=== PATIENT | female | born 1975 | race Caucasian/White ===

== ENCOUNTER → 2016-11-23 | Outpatient (CLI) | payer OTHER ==
[~2016-11-23] MED LIST: GABA-113 PO; METH10TA6 PO; MULT-506 PO
[2016-11-26 01:54] LABS: CHLAMYDIA TRACH RNA*** NOT DETECTED (NOT DETECTED); GC (NEIS GONORRHOEAE)RNA** NOT DETECTED (NOT DETECTED)
== END | disposition home or self-care (01) ==
LOC: C.LABPVFM 14:53
PROVIDERS: ATTEND Nurse Practitioner Family
DX: L29.8 Other pruritus (principal); R30.0 Dysuria

== ENCOUNTER → 2017-01-28 | Outpatient (CLI) | payer OTHER ==
--- NOTE | 2017-01-28 16:52 | MAMMOGRAPHY REPORT ---
BILATERAL DIGITAL SCREENING MAMMOGRAM TOMOSYNTHESIS WITH CAD: 01/28/2017 CLINICAL HISTORY: Routine screening. Patient has no complaints. TECHNIQUE: Breast tomosynthesis in addition to standard 2D mammography was performed. Current study was also evaluated with a Computer Aided Detection (CAD) system. COMPARISON: Comparison is made to exam dated: 12/18/2008. BREAST COMPOSITION: The tissue of both breasts is heterogeneously dense, which may obscure small ma sses. FINDINGS: There is an obscured mass versus 2 adjacent masses seen within the left upper inner quadr ant, for which spot compression tomosynthesis views and possible breast ultrasound are recommended f or further evaluation. The remainder of both breasts are stable compared to prior exams, without suspicious masses, calcifi cations, or areas of architectural distortion noted. An oval benign-appearing 15 mm mass seen withi n the left anterior breast at approximately 9:00 is stable. IMPRESSION: ACR BI-RADS CATEGORY 0: INCOMPLETE EVALUATION: NEED ADDITIONAL IMAGING EVALUATION Left medial breast mass, for which additional imaging evaluation is recommended. The patient will b e called to schedule an appointment. Approximately 10% of breast cancers are not detected with mammography. A negative mammographic repor t should not delay biopsy if a clinically suggestive mass is present. Elsa Doyle M.D. /:01/28/2017 16:09:47 Rubber Trimmer: Amy JACKSON)(M), [facility] letter sent: Addl Imaging 0 BI-RADS Code: ACR BI-RADS Category 0: Incomplete Evaluation: Need Additional Imaging Evaluation
== END | disposition home or self-care (01) ==
LOC: C.MAMM 13:40
PROVIDERS: ATTEND Obstetrics & Gynecology
DX: Z12.31 Encounter for screening mammogram for malignant neoplasm of breast (principal); N63 Unspecified lump in breast

== ENCOUNTER → 2017-02-01 | Outpatient (CLI) | payer OTHER ==
--- NOTE | 2017-02-01 15:57 | MAMMOGRAPHY REPORT ---
UNILATERAL LEFT DIGITAL DIAGNOSTIC MAMMOGRAM TOMOSYNTHESIS AND TARGETED LEFT ULTRASOUND: 02/01/2017 CLINICAL HISTORY: 42-year-old woman called back from screening mammography for a possible obscured m ass versus 2 adjacent masses in the medial left breast. A 15 mm mass in the medial anterior left br east was felt to be stable to decreased in size dating back to 12/18/2008 mammogram, therefore consi dered benign. TECHNIQUE: Spot compression left CC and MLO tomosynthesis images were obtained. COMPARISON: Comparison is made to exams dated: 01/28/2017 mammogram - [facility] a nd 12/18/2008. BREAST COMPOSITION: The tissue of the left breast is heterogeneously dense, which may obscure small masses. FINDINGS: The spot compression tomosynthesis CC views demonstrate a lobulated, 11 x 11 mm mass in th e medial, middle one third of the breast. There is an elliptical 19 x 10 mm mass more medial and an terior within the left breast. No definite focal area of architectural distortion or other obvious mass. Further evaluation with ultrasound was performed. Targeted ultrasound was performed in the medial left breast. In the 7:00 periareolar left breast, t here is a hypoechoic solid circumscribed mass measuring 9.0 x 10.3 x 13.4 mm. This likely correlate s with the stable mammographic mass and most likely represents a fibroadenoma. Another hypoechoic m ultilobulated solid appearing mass is identified in the 9:00 left breast, 1 cm from the nipple. Acc urate measurements are difficult to obtain given the multiple lobulations, but this measures approxi mately 8.0 x 10.2 mm in maximum dimension. In the 10:00 left breast, 5 cm from the nipple, there ar e clumped nodular hypoechoic areas measuring approximately 7.5 x 3.4 x 9.0 mm, which appears somewha t similar to the other grouped hypoechoic masses in the 9:00 breast. These findings could all repre sent fibrocystic or fibroadenomatoid change. However, a short interval follow-up diagnostic left ma mmogram and repeat targeted ultrasound in the 9:00 and 10:00 axes is recommended to ensure stability in 6 months. IMPRESSION: ACR-BI-RADS CATEGORY 3: PROBABLY BENIGN, TARGETED ULTRASOUND ACR-BI-RADS CATEGORY 3: RI OBABLY BENIGN There are benign appearing lobulated hypoechoic masses in the 9:00 left breast and also likely in th e 10:00 left breast that could represent fibrocystic or fibroadenomatoid change. A dominant solid m ass in the 7:00 left breast is stable mammographically dating back to at least 2008, therefore likel y benign. However, a short interval follow-up diagnostic left mammogram including tomosynthesis marco antonio ges and repeat targeted ultrasound in the 9:00 and 10:00 axes is recommended to ensure stability in 6 months. These results and recommendations were discussed with the patient at the time of the exam. She tent atively scheduled a follow-up appointment prior to leaving our department. Approximately 10% of breast cancers are not detected with mammography. A negative mammographic repor t should not delay biopsy if a clinically suggestive mass is present. Yandy Crystal M.D. ay/:02/01/2017 15:37:58 Communications Department Chairperson: Emma JACKSON)(Sandeep), [facility] letter sent: Follow Up Recommended 3 BI-RADS Code: ACR-BI-RADS Category 3: Probably Benign Ultrasound BI-RADS: ACR-BI-RADS Category 3: P robably Benign
== END | disposition home or self-care (01) ==
LOC: C.MAMM 09:39
PROVIDERS: ATTEND Obstetrics & Gynecology
DX: N63 Unspecified lump in breast (principal)

== ENCOUNTER → 2017-02-26 | Outpatient (CLI) | payer OTHER | END | disposition home or self-care (01) | LOC: C.LABSPEC 13:24 | PROVIDERS: ATTEND Family Medicine | DX: N39.0 Urinary tract infection, site not specified (principal) ==

== ENCOUNTER → 2018-02-02 | Outpatient (CLI) | payer OTHER | END | disposition home or self-care (01) | LOC: C.LABPVFM 17:15 | PROVIDERS: ATTEND Family Medicine | DX: Z00.00 Encounter for general adult medical examination without abnormal findings (principal); N39.0 Urinary tract infection, site not specified; R39.9 Unspecified symptoms and signs involving the genitourinary system ==

== ENCOUNTER → 2018-02-02 | Outpatient (CLI) | payer OTHER ==
--- NOTE | 2018-02-02 15:47 | MAMMOGRAPHY REPORT ---
BILATERAL DIGITAL DIAGNOSTIC MAMMOGRAM TOMOSYNTHESIS WITH CAD AND TARGETED LEFT ULTRASOUND: 02/02/2018 CLINICAL HISTORY: Short interval follow-up of left breast masses. Due for routine mammography of the right breast. The patient reports no new lumps or other complaints. TECHNIQUE: Breast tomosynthesis in addition to standard 2D mammography was performed. Current study was also evaluated with a Computer Aided Detection (CAD) system. Bilateral CC and MLO 2D and tomosyn thesis images were obtained. COMPARISON: Comparison is made to exams dated: 08/05/2017 ultrasound, 08/05/2017 mammogram, 02/01/2017 m ammogram, 02/01/2017 ultrasound, 01/28/2017 mammogram - [facility], and 12/18/2008. BREAST COMPOSITION: The tissue of both breasts is heterogeneously dense, which may obscure small mas ses. FINDINGS: There has been no significant interval change mammographically compared to prior exams. Lo bulated partially circumscribed and partially obscured 13 mm mass within the left medial breast at ap proximately 9 to 10:00 is stable mammographically dating back to the January 2017 exam. Circumscribed 17 mm mass within the left lower inner quadrant anteriorly is stable dating back to the 2008 exam and is benign given long-term stability and likely represents a fibroadenoma. The remainder of both arminda asts are stable mammographically compared to prior exams, without suspicious masses, calcifications, or areas of architectural distortion noted. A few other small circumscribed benign-appearing masses are noted within the left breast on the tomosynthesis images. Targeted ultrasound was performed of the previously seen left breast masses for which follow-up was r ecommended. In the left breast at 9:00, 1-2 cm from the nipple, again noted is a multilobulated hypo echoic mass which does not appear significantly changed dating back to the February 2017 exam, measuring 1 0 x 3 x 8 mm. This likely corresponds with the stable mammographic mass and is probably benign and ma y represent fibroadenomatoid or fibrocystic changes. In the left 10:00 breast, 5 cm from the nipple, again noted are clumped nodular hypoechoic areas, which are difficult to measure due to the lobulate d appearance but measures up to 14 mm in extent. The finding appears stable dating back to the February 02 exam and likely represents fibrocystic changes. IMPRESSION: ACR-BI-RADS CATEGORY 3: PROBABLY BENIGN, TARGETED ULTRASOUND ACR-BI-RADS CATEGORY 3: PRO BABLY BENIGN Hypoechoic lobulated 10 mm mass in the left 9:00 breast is stable mammographically and sonographicall y dating back to the February 2017 exam, and is probably benign and may represent a fibroadenoma or fibroc ystic changes. Nodular hypoechoic areas in the left 10:00 breast are also stable on ultrasound datin g back to the February 2017 exam; the finding is probably benign and likely represents fibrocystic changes . Recommend bilateral diagnostic tomosynthesis mammograms and possible targeted ultrasound of the le ft breast in 12 months to confirm longer stability of the left breast findings and for routine mammog brendan of the right breast. The patient has been verbally notified of the results. Approximately 10% of breast cancers are not detected with mammography. A negative mammographic report should not delay biopsy if a clinically suggestive mass is present. Elsa Doyle M.D. ah/:02/02/2018 11:10:00 Export Administrator: Emma WOODSON(Heather)(Sandeep), [facility] letter sent: Follow Up Recommended 3 BI-RADS Code: ACR-BI-RADS Category 3: Probably Benign Ultrasound BI-RADS: ACR-BI-RADS Category 3: Pr obably Benign
== END | disposition home or self-care (01) ==
LOC: C.MAMM 09:11
PROVIDERS: ATTEND Obstetrics & Gynecology
DX: N63.20 Unspecified lump in the left breast, unspecified quadrant (principal)

== ENCOUNTER → 2018-02-14 | Outpatient (CLI) | payer OTHER | END | disposition home or self-care (01) | LOC: C.LABPVFM 12:29 | PROVIDERS: ATTEND Family Medicine | DX: R30.0 Dysuria (principal) ==